=== PATIENT | male | born 1955 | race American Indian/Alaskan Native ===

== ENCOUNTER 2018-12-20 20:02 | Emergency (ER) | payer SELFPAY ==
--- NOTE | 2018-12-20 20:53 | Emergency Department Report ---
ED Seizure HPI - General Chief Complaint: Seizure Stated Complaint: SEIZURE Time Seen by Provider: 12/20/18 20:37 Source: EMS, old records reviewed Mode of arrival: Stretcher Limitations: No Limitations - History of Present Illness Initial Comments: 63-year-old male with no significant past medical history presents to Hospital complaining of possible seizure activity. This activity was witnessed by 3 friends and patient was ictal upon arrival. Patient is currently alert and oriented 3. Patient admits to drinking beer today but denies daily use. He denies headache, tongue laceration, urinary incontinence, or any pain. Patient stated he had a similar episode and was admitted here either July or August. Previous medical record reviewed. Another chart noted with the same name but a different date visit 08/11/2018 (registration to merge the charts). Prior to that visit patient was found outside unresponsive by bystanders after cutting grass for 5 hours. At that time he admitted to daily alcohol use. He was treated initially any ER for suspected seizure and received Keppra. Ultimately he was worked up for syncope and discharged with diagnosis of syncope due to dehydration. Discharge medications included pravastatin and aspirin. - Related Data Previous Rx's Medication Instructions Recorded Last Taken Type levETIRAcetam [Keppra] 500 mg PO BID #60 tablet 12/21/18 Unknown Rx Allergies Allergy/AdvReac Type Severity Reaction Status Date / Time No Known Allergies Allergy Unverified 12/20/18 20:24 ED Review of Systems ROS: Stated complaint: SEIZURE Other details as noted in HPI Comment: All other systems reviewed and negative ED Past Medical Hx - Past Medical History Previous Medical History?: No - Social History Smoking Status: Current Every Day Smoker Substance Use Type: Alcohol - Medications Home Medications: Home Medications Medication Instructions Recorded Confirmed Last Taken Type levETIRAcetam [Keppra] 500 mg PO BID #60 tablet 12/21/18 Unknown Rx ED Physical Exam - General Limitations: No Limitations - Other Other exam information: General: No limitations, patient is alert in no acute distress Head exam: Atraumatic, normocephalic Eyes exam: Normal appearance, pupils equal reactive to light, extraocular movements intact ENT: Moist mucous membrane, no tongue laceration Neck exam: Normal inspection, full range of motion, no meningismus nontender Respiratory exam: Clear to auscultation bilateral, no wheezes, rales, crackles Cardiovascular: Normal rate and rhythm, normal heart sounds Abdomen: Soft, nondistended, and nontender, with normal bowel sounds, no rebound, or guarding Extremity: Full range of motion normal inspection no deformity Back: Normal Inspection, full range of motion, no tenderness Neurologic: Alert, oriented x3, cranial nerves intact, no motor or sensory deficit, [id number] function intact Psychiatric: normal affect, normal mood Skin: Warm, dry, intact ED Course Vital Signs 12/20/18 12/20/18 12/20/18 20:24 20:30 20:32 Temperature 98.1 F Pulse Rate 93 H 91 H Respiratory 17 17 19 Rate Blood Pressure 147/81 143/76 O2 Sat by Pulse 95 94 94 Oximetry 12/20/18 12/20/18 12/20/18 20:45 21:00 21:16 Temperature Pulse Rate 96 H 93 H 89 Respiratory 17 16 17 Rate Blood Pressure 153/74 153/74 153/74 O2 Sat by Pulse 96 94 93 Oximetry 12/20/18 12/21/18 21:30 00:06 Temperature Pulse Rate 91 H 84 Respiratory 14 15 Rate Blood Pressure 153/74 150/75 O2 Sat by Pulse 97 Oximetry - Reevaluation(s) Reevaluation #1: 12/20/18 20:57 Keppra ordered ED Medical Decision Making - Lab Data Result diagrams: 12/20/18 20:49 12/20/18 20:49 Lab Results 12/20/18 12/20/18 12/20/18 Range/Units 20:49 20:49 20:49 WBC 4.6 (4.5-11.0) K/mm3 RBC 3.45 L (3.65-5.03) M/mm3 Hgb 11.5 L (11.8-15.2) gm/dl Hct 33.3 L (35.5-45.6) % MCV 97 H (84-94) fl MCH 33 H (28-32) pg MCHC 35 H (32-34) % RDW 12.7 L (13.2-15.2) % Plt Count 146 (140-440) K/mm3 Lymph % (Auto) 22.0 (13.4-35.0) % Motley % (Auto) 7.8 H (0.0-7.3) % Eos % (Auto) 0.8 (0.0-4.3) % Baso % (Auto) 0.7 (0.0-1.8) % Lymph # 1.0 L (1.2-5.4) K/mm3 Motley # 0.4 (0.0-0.8) K/mm3 Eos # 0.0 (0.0-0.4) K/mm3 Baso # 0.0 (0.0-0.1) K/mm3 Seg Neutrophils % 68.7 (40.0-70.0) % Seg Neutrophils # 3.2 (1.8-7.7) K/mm3 Sodium 133 L (137-145) mmol/L Potassium 4.0 (3.6-5.0) mmol/L Chloride 98.2 (98-107) mmol/L Carbon Dioxide 19 L (22-30) mmol/L Anion Gap 20 mmol/L BUN 9 (9-20) mg/dL Creatinine 0.9 (0.8-1.5) mg/dL Estimated GFR > 60 ml/min BUN/Creatinine Ratio 10 % Glucose 124 H (75-100) mg/dL Calcium 9.3 (8.4-10.2) mg/dL Magnesium 1.80 (1.7-2.3) mg/dL Plasma/Serum Alcohol < 0.01 (0-0.07) % - Radiology Data Radiology results: report reviewed ct head: naf - Medical Decision Making Patient will be treated for presumed seizures with Keppra. No seizure activity in the ED. He received Keppra IV. Labs and CT head unremarkable. We will discharge with outpatient primary care doctor in neurology follow-up - Differential Diagnosis alcohol abuse, alcohol withdrawal seizure, electrolyte abnormality, seizure Critical Care Time: No Critical care attestation.: If time is entered above; I have spent that time in minutes in the direct care of this critically ill patient, excluding procedure time. ED Disposition Clinical Impression: Seizure Disposition: DC-01 TO HOME OR SELFCARE Is pt being admited?: No Does the pt Need Aspirin: No Condition: Stable Instructions: New-Onset Seizure in Adults (ED) Additional Instructions: Take the medication as prescribed. Follow up with doctor/clinic or neurologist. Return if symptoms worsen as indicated by your discharge instructions Prescriptions: levETIRAcetam [Keppra] 500 mg PO BID #60 tablet Referrals: MICHELE GLEASON MD [Staff Physician] - 3-5 Days (neurology) SELMA MCCORMICK MD [Primary Care Provider] - 3-5 Days (Primary care doctor) [facility] [Provider Group] - 3-5 Days (Primary care clinic) Time of Disposition: 00:55
[2018-12-20] MEDS ORDERED: KEPPRA 1,000 MG/NS 0.75% 100ML 1,000 MG/100 ML BAG IV ONE (20:54)
[2018-12-20 20:58] LABS: Basophils % (Auto) 0.7 % (0.0-1.8); Eosinophils % (Auto) 0.8 % (0.0-4.3); Hematocrit 33.3 % (35.5-45.6); Hemoglobin 11.5 gm/dl (11.8-15.2); Mean Corpuscular HGB Conc 35 % (32-34); Mean Corpuscular Volume 97 fl (84-94); Monocytes # (Auto) 0.4 K/mm3 (0.0-0.8); Monocytes % (Auto) 7.8 % (0.0-7.3); Platelet Count 146 K/mm3 (140-440); Red Blood Count 3.45 M/mm3 (3.65-5.03); Red Cell Distribution Width 12.7 % (13.2-15.2)
[2018-12-20 21:40] LABS: BUN/Creatinine Ratio 10; Blood Urea Nitrogen 9 mg/dL (9-20); Calcium 9.3 mg/dL (8.4-10.2); Hemolysis Index 8
--- NOTE | 2018-12-20 22:11 | Cat Scan Report ---
FINAL REPORT PROCEDURE: CT HEAD/BRAIN WO CON TECHNIQUE: Computerized tomography of the head was performed without contrast material. HISTORY: seizure COMPARISON: No prior studies are available for comparison. FINDINGS: Skull and scalp: Normal. Paranasal sinuses: Normal. Ventricles and subarachnoid spaces: Are prominent consistent with cerebral atrophy appropriate for pa tient's age.. Cerebrum: No evidence of hemorrhage, acute infarction or mass . Cerebellum and brainstem: No evidence of hemorrhage, acute infarction or mass. Vasculature: Atherosclerotic calcification internal carotid and vertebral arteries is noted.. Comments: None. IMPRESSION: No acute intracranial abnormality.
[2018-12-20] MEDS ORDERED: NACL 0.9% 1000 ML 1,000 ML IV ONE (22:35)
[2018-12-21 02:08] VITALS: BP 136/72
== END 2018-12-21 02:18 | disposition home or self-care (01) ==
LOC: ED 20:02
DX: R56.9 Unspecified convulsions (principal); R55 Syncope and collapse; E86.0 Dehydration; Z79.82 Long term (current) use of aspirin; F17.200 Nicotine dependence, unspecified, uncomplicated
CPT/HCPCS: 36415; 70450; 80048; 83735; 85025; 96365; 99285; G0480; J1953; J7030; 80320; 96361

== ENCOUNTER 2020-01-17 17:51 | Emergency (ER) | payer SELFPAY ==
[2020-01-17 20:06] VITALS: BP 141/77
[2020-01-17] MEDS ORDERED: levETIRAcetam 500 MG TAB PO ONE (20:28)
[2020-01-17] MEDS ORDERED: LORazepam 2 MG/ML VIAL IM ONE (20:28)
--- NOTE | 2020-01-17 21:24 | Emergency Department Report ---
ED General Adult HPI - General Chief complaint: Seizure Stated complaint: SEIZURE Time Seen by Provider: 01/17/20 20:07 Source: patient, EMS Mode of arrival: Wheelchair Limitations: No Limitations - History of Present Illness Initial comments: The patient presents to the emergency department with a chief complaint of seizure activity. Patient has a history of seizures and not compliant with his seizure medications. Patient has not taken seizure medications in over a week. Patient denies any chest pain, shortness breath, or headache. -: Sudden Severity scale (0 -10): 0 Consistency: now resolved Improves with: none Worsens with: none Associated Symptoms: denies other symptoms Treatments Prior to Arrival: none - Related Data Previous Rx's Medication Instructions Recorded Last Taken Type levETIRAcetam [Keppra] 500 mg PO BID #60 tablet 12/21/18 Unknown Rx levETIRAcetam [Keppra TAB] 500 mg PO BID #60 tablet 01/17/20 Unknown Rx Allergies Allergy/AdvReac Type Severity Reaction Status Date / Time No Known Allergies Allergy Unverified 12/20/18 20:24 ED Review of Systems ROS: Stated complaint: SEIZURE Other details as noted in HPI Constitutional: denies: chills, fever Eyes: denies: eye pain, eye discharge, vision change ENT: denies: ear pain, throat pain Respiratory: denies: cough, shortness of breath, wheezing Cardiovascular: denies: chest pain, palpitations Endocrine: no symptoms reported Gastrointestinal: denies: abdominal pain, nausea, diarrhea Genitourinary: denies: urgency, dysuria Musculoskeletal: denies: back pain, joint swelling, arthralgia Skin: denies: rash, lesions Neurological: denies: headache, weakness, paresthesias Psychiatric: denies: anxiety, depression Hematological/Lymphatic: denies: easy bleeding, easy bruising ED Past Medical Hx - Past Medical History Previous Medical History?: Yes Hx Seizures: Yes - Surgical History Past Surgical History?: Yes - Social History Smoking Status: Current Every Day Smoker Substance Use Type: Alcohol - Medications Home Medications: Home Medications Medication Instructions Recorded Confirmed Last Taken Type levETIRAcetam [Keppra] 500 mg PO BID #60 tablet 12/21/18 01/17/20 Unknown Rx levETIRAcetam [Keppra TAB] 500 mg PO BID #60 tablet 01/17/20 Unknown Rx ED Physical Exam - General Limitations: No Limitations General appearance: alert, in no apparent distress - Head Head exam: Present: atraumatic, normocephalic - Eye Eye exam: Present: normal appearance, PERRL, EOMI - ENT ENT exam: Present: mucous membranes moist - Neck Neck exam: Present: normal inspection - Respiratory Respiratory exam: Present: normal lung sounds bilaterally. Absent: respiratory distress - Cardiovascular Cardiovascular Exam: Present: regular rate, normal rhythm. Absent: systolic murmur, diastolic murmur, rubs, gallop - GI/Abdominal GI/Abdominal exam: Present: soft, normal bowel sounds. Absent: distended, tenderness - Rectal Rectal exam: Present: deferred - Extremities Exam Extremities exam: Present: normal inspection - Back Exam Back exam: Present: normal inspection - Neurological Exam Neurological exam: Present: alert, oriented X3, CN II-XII intact. Absent: motor sensory deficit - Psychiatric Psychiatric exam: Present: normal affect, normal mood - Skin Skin exam: Present: warm, dry, intact, normal color. Absent: rash ED Course Vital Signs 01/17/20 20:03 Temperature 98.3 F Pulse Rate 81 Respiratory 20 Rate Blood Pressure 141/77 [Left] O2 Sat by Pulse 98 Oximetry ED Medical Decision Making - Medical Decision Making Patient given ATIVAN AND KEPPRA Critical care attestation.: If time is entered above; I have spent that time in minutes in the direct care of this critically ill patient, excluding procedure time. ED Disposition Clinical Impression: Seizure Disposition: DC-01 TO HOME OR SELFCARE Is pt being admited?: No Does the pt Need Aspirin: No Condition: Stable Instructions: Recurrent Seizures Adult (ED) Additional Instructions: RETURN IF WORSE Prescriptions: levETIRAcetam [Keppra TAB] 500 mg PO BID #60 tablet Referrals: [facility] [Provider Group] - 3-5 Days [facility] [Provider Group] - 3-5 Days Time of Disposition: 21:22
== END 2020-01-17 21:42 | disposition home or self-care (01) ==
LOC: ED 17:51
DX: R56.9 Unspecified convulsions (principal); F17.200 Nicotine dependence, unspecified, uncomplicated
CPT/HCPCS: 96372; 99283; J2060